=== PATIENT | male | born 1995 | race Asian ===

== ENCOUNTER 2017-02-19 17:20 | Emergency (ER) | payer SELFPAY ==
[~2017-02-19] VITALS: Ht 154.9 cm; Wt 88.0 kg
[2017-02-19] MEDS ORDERED: IOHEXOL 350 MG/ML 10 ML VIAL (for RAD DIAG) IVCONTRAST ONE (17:21)
[2017-02-19 17:22] VITALS: BP 139/82; PULSE 87; RESP 18; TEMP 98.7; O2SAT 100
[2017-02-19] MEDS ORDERED: ONDANSETRON HCL 4 MG/2 ML VIAL IVP ONE (18:15)
[2017-02-19] MEDS ORDERED: MORPHINE SULFATE 4 MG/ML INJ IV PUSH ONE (18:15)
[2017-02-19] MEDS ORDERED: SODIUM CHLORIDE 0.9% FLUSH 10 ML FLUSH IV FLUSH PRN (18:15)
[2017-02-19 18:18] VITALS: RESP 18; O2SAT 98
--- NOTE | 2017-02-19 18:26 | PD ---
HPI Chief Complaint: Abdominal Pain Time Seen by Provider: 18:04 Travel History International Travel<30 days: No Contact w/Intl Traveler<30days: No Traveled to known affect area: No History of Present Illness HPI 21-year-old male presents to the emergency room for evaluation of right mid abdominal pain. Patient states pain started 2 days ago. He went to an urgent care center who recommended he come to the emergency room to rule out appendicitis. Pain is constant, sharp, worse when he touches it. He has not taken anything for symptoms. He has had associated nausea with one episode of vomiting. Denies fever, chills, and diarrhea. No chronic medical conditions or daily medications. PFSH Past Medical History Medical History: Denies Significant Hx Past Surgical History Surgical History: No Previous Surgery Social History Alcohol Use: No Tobacco Use: Yes Substance Use: No Allergies-Medications (Allergen,Severity, Reaction): Coded Allergies: No Known Allergies (Unverified , 02/19/17) Reported Meds & Prescriptions Reported Meds & Active Scripts Active No Active Prescriptions or Reported Medications Review of Systems Except as stated in HPI: all other systems reviewed are Neg Physical Exam Narrative GENERAL: Well-nourished, well-developed male in no acute distress. Afebrile. Ambulatory. SKIN: Focused skin assessment warm/dry. HEAD: Normocephalic. EYES: No scleral icterus. No injection or drainage. NECK: Supple, trachea midline. No JVD or lymphadenopathy. CARDIOVASCULAR: Regular rate and rhythm without murmurs, gallops, or rubs. RESPIRATORY: Breath sounds equal bilaterally. No accessory muscle use. GASTROINTESTINAL: Abdomen soft, nondistended. Moderate tenderness to palpation of the right upper and lower quadrant. Negative Rovsing sign. Mild rebound tenderness. No guarding/peritoneal signs. Data Data Last Documented VS Vital Signs Date Time Temp Pulse Resp B/P (MAP) Pulse Ox O2 Delivery O2 Flow Rate FiO2 02/19/17 18:18 18 98 Room Air 02/19/17 17:22 98.7 87 Orders Orders Complete Blood Count With Diff (02/19/17 18:12) Comprehensive Metabolic Panel (02/19/17 18:12) Prothrombin Time / Inr (Pt) (02/19/17 18:12) Act Partial Throm Time (Ptt) (02/19/17 18:12) Ct Abd/Pel W Iv Contrast(Rout) (02/19/17 18:12) Iv Access Insert/Monitor (02/19/17 18:12) Ecg Monitoring (02/19/17 18:12) Oximetry (02/19/17 18:12) Morphine Inj (Morphine Inj) (02/19/17 18:15) Ondansetron Inj (Zofran Inj) (02/19/17 18:15) Sodium Chloride 0.9% Flush (Ns Flush) (02/19/17 18:15) Iohexol 350 Inj (Omnipaque 350 Inj) (02/19/17 17:21) Labs Laboratory Tests Test 02/19/17 18:18 White Blood Count 9.9 TH/MM3 Red Blood Count 5.97 MIL/MM3 Hemoglobin 18.6 GM/DL Hematocrit 51.9 % Mean Corpuscular Volume 86.9 FL Mean Corpuscular Hemoglobin 31.2 PG Mean Corpuscular Hemoglobin Concent 35.9 % Red Cell Distribution Width 12.8 % Platelet Count 345 TH/MM3 Mean Platelet Volume 8.1 FL Neutrophils (%) (Auto) 64.1 % Lymphocytes (%) (Auto) 24.3 % Monocytes (%) (Auto) 8.8 % Eosinophils (%) (Auto) 1.7 % Basophils (%) (Auto) 1.1 % Neutrophils # (Auto) 6.3 TH/MM3 Lymphocytes # (Auto) 2.4 TH/MM3 Monocytes # (Auto) 0.9 TH/MM3 Eosinophils # (Auto) 0.2 TH/MM3 Basophils # (Auto) 0.1 TH/MM3 CBC Comment AUTO DIFF Differential Total Cells Counted 100 Neutrophils % (Manual) 70 % Lymphocytes % 22 % Monocytes % 6 % Eosinophils % 2 % Neutrophils # (Manual) 6.9 TH/MM3 Differential Comment FINAL DIFF MANUAL Platelet Estimate NORMAL Platelet Morphology Comment NORMAL Prothrombin Time 11.1 SEC Prothromb Time International Ratio 1.0 RATIO Activated Partial Thromboplast Time 28.0 SEC Blood Urea Nitrogen 16 MG/DL Creatinine 1.12 MG/DL Random Glucose 83 MG/DL Total Protein 8.9 GM/DL Albumin 4.5 GM/DL Calcium Level 8.9 MG/DL Alkaline Phosphatase 74 U/L Aspartate Amino Transf (AST/SGOT) 16 U/L Alanine Aminotransferase (ALT/SGPT) 27 U/L Total Bilirubin 0.6 MG/DL Sodium Level 137 MEQ/L Potassium Level 3.6 MEQ/L Chloride Level 102 MEQ/L Carbon Dioxide Level 28.9 MEQ/L Anion Gap 6 MEQ/L Estimat Glomerular Filtration Rate 84 ML/MIN MDM Medical Decision Making Medical Screen Exam Complete: Yes Emergency Medical Condition: Yes Medical Record Reviewed: Yes Differential Diagnosis Appendicitis, nephrolithiasis, colitis Narrative Course 21-year-old otherwise healthy male presents to the emergency room for evaluation of right lower quadrant abdominal pain for the past 2 days. Pain is constant, worse when he pushes on his abdomen. He has associated nausea and vomiting. Denies fever, chills, diarrhea. Patient is resting comfortably, moving easily on the bed. His abdomen is soft. There is tenderness to palpation more localized to the right lumbar region rather than the right lower quadrant. No peritoneal signs, rebound tenderness. Negative Rovsing sign. Vital signs stable. CBC and CMP are unremarkable. CT abdomen and pelvis is negative for any acute abnormality. Given nausea and vomiting, patient likely has gastroenteritis. He was reassured and told to follow up with a primary care physician or return immediately for worsening symptoms. Diagnosis Primary Impression: Abdominal pain Qualified Codes: R10.31 - Right lower quadrant pain Referrals: Primary Care Physician Additional Instructions: Rest and drink plenty of fluids. Take ibuprofen with food as directed, as needed for pain. Follow-up with a primary care physician. Return to the emergency room for worsening symptoms. Scripts No Active Prescriptions or Reported Meds Disposition: 01 DISCHARGE HOME Condition: Stable Marry Nair Feb 19, 2017 18:26
[2017-02-19 18:44] LABS: AUTOMATED NEUTROPHIL # 6.3 TH/MM3 (1.8-7.7); BASOPHIL # 0.1 TH/MM3 (0-0.2); BASOPHIL % 1.1 % (0.0-2.0); EOSINOPHIL # 0.2 TH/MM3 (0-0.4); EOSINOPHIL % 1.7 % (0.0-4.0); HEMATOCRIT 51.9 % (39.0-51.0); LYMPH % 24.3 % (9.0-44.0); LYMPHOCYTE # 2.4 TH/MM3 (1.0-4.8); MEAN CELL VOLUME 86.9 FL (80.0-100.0); MEAN CORPUSCULAR HEMOGLOBIN 31.2 PG (27.0-34.0); MEAN CORPUSCULAR HGB CONC 35.9 % (32.0-36.0); MONO % 8.8 % (0.0-8.0); NEUT % 64.1 % (16.0-70.0); PLATELET COUNT 345 TH/MM3 (150-450); RED BLOOD COUNT 5.97 MIL/MM3 (4.50-5.90); RED CELL DISTRIBUTION WIDTH 12.8 % (11.6-17.2); WHITE BLOOD COUNT 9.9 TH/MM3 (4.0-11.0)
[2017-02-19 18:47] LABS: HEMO FLAGS AUTO DIFF
[2017-02-19 18:51] LABS: PROTHROMBIN TIME - PATIENT 11.1 SEC (9.8-11.6)
[2017-02-19 18:57] LABS: ALT (GPT) 27 U/L (9-52); ANION GAP 6 MEQ/L (5-15); AST (GOT) 16 U/L (15-39); BICARBONATE 28.9 MEQ/L (21.0-32.0); BLOOD UREA NITROGEN 16 MG/DL (7-18); CHLORIDE 102 MEQ/L (98-107); GLOMERULAR FILTRATION RATE 84 ML/MIN (>89); POTASSIUM 3.6 MEQ/L (3.5-5.1); SODIUM (NA) 137 MEQ/L (136-145)
[2017-02-19 19:00] LABS: ALKALINE PHOSPHATASE 74 U/L (45-117); TOTAL BILIRUBIN ADULT 0.6 MG/DL (0.2-1.0)
[2017-02-19 19:25] LABS: EOSINOPHILS 2 % (0-4); NEUTROPHIL # MANUAL DIFF 6.9 TH/MM3 (1.8-7.7); POLYS (SEG NEUTROPHILS) 70 % (16-70); WBC DIFF SAMPLE 100
[2017-02-19 19:26] LABS: PLATELET ESTIMATE SMEAR NORMAL (NORMAL); PLATELET MORPHOLOGY NORMAL (NORMAL); SCAN/DIFF FINAL DIFF MANUAL
--- NOTE | 2017-02-19 19:26 | RADRPT ---
EXAM DATE/TIME: 02/19/2017 18:31 [facility] COMPARISON: No previous studies available for comparison. INDICATIONS : Right lower quadrant pain past 2 days. IV CONTRAST: 95 cc Omnipaque 350 (iohexol) IV ORAL CONTRAST: No oral contrast ingested. RADIATION DOSE: 15.61 CTDIvol (mGy) MEDICAL HISTORY : None SURGICAL HISTORY : None. ENCOUNTER: Initial ACUITY: 2 days PAIN SCALE: 6/10 LOCATION: Right lower quadrant TECHNIQUE: Volumetric scanning of the abdomen and pelvis was performed. Using automated exposure control and ad justment of the mA and/or kV according to patient size, radiation dose was kept as low as reasonably achievable to obtain optimal diagnostic quality images. DICOM format image data is available electro nically for review and comparison. FINDINGS: LOWER LUNGS: The visualized lower lungs are clear. LIVER: Homogeneous density without lesion. There is no dilation of the biliary tree. Contracted gallbladde r. No calcified gallstones. SPLEEN: Normal size without lesion. Incidental note of a cleft in the upper lateral pole. PANCREAS: Within normal limits. KIDNEYS: Normal in size and shape. There is no mass, stone or hydronephrosis. ADRENAL GLANDS: Within normal limits. VASCULAR: There is no aortic aneurysm. BOWEL/MESENTERY: No dilated loops of small or large bowel. No evidence of mesenteric adenopathy. ABDOMINAL WALL: Within normal limits. RETROPERITONEUM: There is no lymphadenopathy. BLADDER: No wall thickening or mass. REPRODUCTIVE: Within normal limits. INGUINAL: There is no lymphadenopathy or hernia. MUSCULOSKELETAL: Within normal limits for patient age. CONCLUSION: Negative CT abdomen/pelvis with intravenous contrast. Tico Sharma MD on February 19, 2017 at 19:19 Board Certified Radiologist. This report was verified electronically.
== END 2017-02-19 20:19 | disposition home or self-care (01) ==
LOC: NEPD 17:20
DX: R10.31 Right lower quadrant pain (principal); R11.2 Nausea with vomiting, unspecified; Z72.0 Tobacco use
CPT/HCPCS: 74177; 80053; 85007; 85027; 85610; 85730; 96374; 96375; 99285; Q9967